=== PATIENT | male | born 1935 | race Caucasian/White ===

== ENCOUNTER 2017-04-26 08:59 | Emergency (ER) | payer OTHER, MEDICARE, BC ==
[~2017-04-26] VITALS: Ht 175.3 cm; Wt 60.5 kg
[~2017-04-26 08:59] MED LIST: ALBU8I INH; ASPI81 CHEW; ATOR40TA49 PO; BENZ100 PO; FENO145T2 PO; GLUCTAB PO; LEVO500T3 PO; LORTA5 PO; METO50CR PO; NITR.4 SL; PRED20 PO; SPIRCAP INH; ZITH250T PO
[2017-04-26 09:00] VITALS: BP 164/81; PULSE 65; RESP 16; TEMP 97.6; O2SAT 97
[2017-04-26] MEDS ORDERED: METO1TAB9 PO (09:28)
[2017-04-26] MEDS ORDERED: ATOR40TA16 PO (09:28)
[2017-04-26] MEDS ORDERED: ASPI1CHW4 CHEW (09:28)
[2017-04-26] MEDS ORDERED: FENO145T2 PO (09:28)
[2017-04-26] MEDS ORDERED: METF500T PO (09:28)
[2017-04-26 09:29] VITALS: BP 154/70; PULSE 60; RESP 20; O2SAT 98
[2017-04-26] MEDS ORDERED: SODIUM CHLORIDE 0.9% FLUSH 10 ML FLUSH IVF PRN (09:45)
[2017-04-26] MEDS ORDERED: traMADol HCL 50 MG TAB PO ONE (09:45)
[2017-04-26 09:50] LABS: AUTOMATED NEUTROPHIL # 7.2 TH/MM3 (1.8-7.7); BASOPHIL # 0.1 TH/MM3 (0-0.2); BASOPHIL % 1.2 % (0.0-2.0); EOSINOPHIL # 0.3 TH/MM3 (0-0.4); EOSINOPHIL % 3.2 % (0.0-4.0); HEMATOCRIT 43.6 % (39.0-51.0); HEMOGLOBIN 14.4 GM/DL (13.0-17.0); LYMPH % 13.5 % (9.0-44.0); LYMPHOCYTE # 1.4 TH/MM3 (1.0-4.8); MEAN CELL VOLUME 92.8 FL (80.0-100.0); MEAN CORPUSCULAR HEMOGLOBIN 30.7 PG (27.0-34.0); MEAN PLATELET VOLUME 8.7 FL (7.0-11.0); MONO % 10.7 % (0.0-8.0); MONOCYTE # 1.1 TH/MM3 (0-0.9); NEUT % 71.4 % (16.0-70.0); PLATELET COUNT 222 TH/MM3 (150-450); RED BLOOD COUNT 4.69 MIL/MM3 (4.50-5.90); RED CELL DISTRIBUTION WIDTH 15.7 % (11.6-17.2)
[2017-04-26 09:59] LABS: INTERNATIONAL NORMALIZED RATIO 1.1 RATIO; PROTHROMBIN TIME - PATIENT 11.6 SEC (9.8-11.6)
--- NOTE | 2017-04-26 10:06 | RADRPT ---
EXAM DATE/TIME: 04/26/2017 09:44 [facility] COMPARISON: No previous studies available for comparison. INDICATIONS : Palpitations. MEDICAL HISTORY : None. SURGICAL HISTORY : None. ENCOUNTER: Initial ACUITY: 3 days PAIN SCORE: 0/10 LOCATION: Bilateral chest FINDINGS: A single view of the chest demonstrates the lungs to be symmetrically aerated without evidence of mas s, infiltrate or effusion. The cardiomediastinal contours are unremarkable. Osseous structures are intact. CONCLUSION: No acute disease. Sammy Cordero MD FACR on April 26, 2017 at 10:04 Board Certified Radiologist. This report was verified electronically.
[2017-04-26 10:09] LABS: ALT (GPT) 19 U/L (12-78)
[2017-04-26 10:27] LABS: ALBUMIN 3.4 GM/DL (3.4-5.0); ALKALINE PHOSPHATASE 58 U/L (45-117); AST (GOT) 21 U/L (15-37); BICARBONATE 25.2 MEQ/L (21.0-32.0); BLOOD UREA NITROGEN 20 MG/DL (7-18); CHLORIDE 110 MEQ/L (98-107); CREATININE 1.36 MG/DL (0.60-1.30); GLOMERULAR FILTRATION RATE 50 ML/MIN (>89); GLUCOSE,RANDOM 72 MG/DL (74-106); SODIUM (NA) 142 MEQ/L (136-145); TOTAL BILIRUBIN ADULT 0.8 MG/DL (0.2-1.0); TROPONIN I LESS THAN 0.02 NG/ML (0.02-0.05)
[2017-04-26 10:42] VITALS: O2SAT 100
--- NOTE | 2017-04-26 10:43 | RADRPT ---
EXAM DATE/TIME: 04/26/2017 10:26 [facility] COMPARISON: No previous studies available for comparison. INDICATIONS : Syncopal episode with fall three days ago, hit right frontal area. RADIATION DOSE: 32.39 CTDIvol (mGy) MEDICAL HISTORY : Cardiovascular disease. Aneurysm, abdominal. Chronic obstructive pulmonary dise ase.Hypertension, Diabetes. SURGICAL HISTORY : None. ENCOUNTER: Initial ACUITY: 3 days PAIN SCALE: 4/10 LOCATION: Right frontal TECHNIQUE: Multiple contiguous axial images were obtained of the head. Using automated exposure control and adjustment of the mA and/or kV according to patient size, radiation dose was kept as low as reasonably achievable to obtain optimal diagnostic quality images. DICOM format image data is av ailable electronically for review and comparison. FINDINGS: CEREBRUM: The ventricles are normal for age. No evidence of midline shift, mass lesion, hemorrha ge or acute infarction. No extra-axial fluid collections are seen. POSTERIOR FOSSA: The cerebellum and brainstem are intact. The 4th ventricle is midline. The cer ebellopontine angle is unremarkable. EXTRACRANIAL: The visualized portion of the orbits is intact. SKULL: The calvaria is intact. No evidence of skull fracture. CONCLUSION: Negative for acute process Sammy Cordero MD FACR on April 26, 2017 at 10:40 Board Certified Radiologist. This report was verified electronically.
[2017-04-26 11:03] VITALS: BP 145/65; PULSE 51; RESP 20; O2SAT 97
--- NOTE | 2017-04-26 11:31 | RADRPT ---
EXAM DATE/TIME: 04/26/2017 10:26 [facility] COMPARISON: No previous studies available for comparison. INDICATIONS : Fall three days ago, neck pain. RADIATION DOSE: 20.47 CTDIvol (mGy) MEDICAL HISTORY : Cardiovascular disease. Aneurysm, abdominal. Chronic obstructive pulmonary disease.Hypertension, Diab etes. SURGICAL HISTORY : None. ENCOUNTER: Initial ACUITY: 3 days PAIN SCALE: 5/10 LOCATION: Bilateral neck TECHNIQUE: Volumetric scanning of the cervical spine was performed. Multiplanar reconstructions in the sagittal, coronal and oblique axial planes were performed. Using automated exposure control and adjustment o f the mA and/or kV according to patient size, radiation dose was kept as low as reasonably achievable to obtain optimal diagnostic quality images. DICOM format image data is available electronically f or review and comparison. FINDINGS: There is no acute fracture or prevertebral soft tissue swelling. Grade I retrolisthesis of C5 in rela tion to C4 is noted. Disc space narrowing is noted at C4-5, C5-6 and C6-7. Mild spinal stenosis is no catalino at C5-6. Severe right neural foraminal narrowing is noted at C3-4 and C4-5. Moderate left neural foraminal narrowing is noted at C3-4 and C4-5. Moderate bilateral foraminal narrowing is noted at C5- 6 and C6-7. The bony relationship and alignment between C1 and C2 is well maintained. Biapical emphys ematous changes and fibrotic scarring are noted. CONCLUSION: 1. No acute fracture or prevertebral soft tissue swelling. 2. Mild spinal stenosis at C5-6. 3. Severe right neural foraminal and moderate left neural foraminal narrowing at C3-4 and C4-5 as wel l as moderate bilateral foraminal narrowing at C5-6 and C6-7. 4. Grade I retrolisthesis of C5 in relation to C4. 5. Cervical spondylosis is noted at C4-5, C5-6 and C6-7. 6. Biapical emphysematous changes and fibrotic scarring are noted. Nitin Benedict MD on April 26, 2017 at 11:24 Board Certified Radiologist. This report was verified electronically.
--- NOTE | 2017-04-26 11:36 | RADRPT ---
EXAM DATE/TIME: 04/26/2017 10:33 [facility] COMPARISON: CT ABDOMEN & PELVIS W/O CONTRAST, May 18, 2013, 20:39. INDICATIONS : Fall three days ago, middle back pain. RADIATION DOSE: 24.91 CTDIvol (mGy) MEDICAL HISTORY : Cardiovascular disease. Aneurysm, abdominal. Chronic obstructive pulmonary disease.Hypertension, Diab etes. SURGICAL HISTORY : None. ENCOUNTER: Initial ACUITY: 3 days PAIN SCALE: 5/10 LOCATION: Bilateral mid-back TECHNIQUE: Volumetric scanning of the thoracic spine was performed. Multiplanar reconstructions in the sagittal , coronal and oblique axial planes were performed. Using automated exposure control and adjustment o f the mA and/or kV according to patient size, radiation dose was kept as low as reasonably achievable to obtain optimal diagnostic quality images. DICOM format image data is available electronically f or review and comparison. FINDINGS: No acute fracture or subluxation of the thoracic spine is noted. Mild chronic compression deformities involving T6 and T7 are noted. Minimal chronic compression deformity involving T12 is also noted. De generative changes are noted throughout the thoracic spine. No spinal stenosis is noted. There is a 3 mm calcified nonobstructing right renal calculus. Left renal cyst measuring 16 mm is noted. Right ad renal nodule measuring 14 mm is consistent with probable adrenal adenoma. There is aneurysmal dilatat ion of the descending thoracic aorta measuring 4.8 cm in greatest dimension. CONCLUSION: 1. No acute fracture or subluxation of the thoracic spine. 2. Mild chronic compression findings involving T6 and T7 and minimal chronic compression deformity in volving T12. 3. Degenerative changes throughout the thoracic spine. 4. 3 mm calcified nonobstructing right renal calculus. 16 mm left renal cyst. 5. 14 mm probable right adrenal adenoma. 6. Aneurysmal dilatation of the descending thoracic aorta measuring 4.8 cm in greatest dimension. Nitin Benedict MD on April 26, 2017 at 11:29 Board Certified Radiologist. This report was verified electronically.
--- NOTE | 2017-04-26 12:49 | EKG ---
Date Performed: 04/26/2017 Time Performed: 09:26:26 PTAGE: 81 years EKG: Sinus rhythm BORDERLINE LEFT AXIS DEVIATION BORDERLINE ECG PREVIOUS TRACING : 06/07/2015 11.59 DOCTOR: Zack Theodore Interpretating Date/Time 04/26/2017 12:46:57
[2017-04-26] MEDS ORDERED: IOHEXOL 350 MG/ML 10 ML VIAL (for RAD DIAG) IVCONTRAST ONE (14:08)
[2017-04-26 14:24] VITALS: BP 169/79; PULSE 58; RESP 18; O2SAT 97
--- NOTE | 2017-04-26 14:48 | RADRPT ---
EXAM DATE/TIME: 04/26/2017 13:59 [facility] COMPARISON: No previous studies available for comparison. INDICATIONS : Back pain. Evaluate for aortic dissection. IV CONTRAST: 75 cc Omnipaque 350 (iohexol) IV RADIATION DOSE: 4.15 CTDIvol (mGy) MEDICAL HISTORY : Aneurysm, abdominal. Hypertension. Chronic obstructive pulmonary disease. SURGICAL HISTORY : Abdominal aortic aneurysm repair. ENCOUNTER: Initial ACUITY: 1 day PAIN SCALE: 6/10 LOCATION: Bilateral back TECHNIQUE: Volumetric scanning was performed using a multi-row detector CT scanner. The data was post processed with a variety of visualization algorithms including full volume maximum intensity projection, multi -planar sliding thin slab reformation, curved planar reformation, and surface rendering techniques. Using automated exposure control and adjustment of the mA and/or kV according to patient size, radiat ion dose was kept as low as reasonably achievable to obtain optimal diagnostic quality images. DICOM format image data is available electronically for review and comparison. FINDINGS: There is panlobular emphysema in both upper lobes with central lobular emphysema in the bases. There is a large bulla present in the right lower lobe. No pulmonary nodules are identified. Examination of the mediastinum demonstrates no abnormally enlarged lymph nodes by CT criteria. No axillary or hilar abnormalities are identified. Coronary artery calcifications are present. The liver and spleen are normal in size and no focal defects are identified. There is a nodule in the right adrenal gland likely reflecting adenoma measuring 15 mm. There are simple cysts bilaterally th e largest measuring 5 cm in the lower pole on the right. The prostate gland is moderately enlarged im pinging on the bladder base. There is diverticulosis without evidence of diverticulitis. Examination of the aortic arch demonstrates no evidence of aneurysm or dissection. The descending th oracic aorta is unremarkable and the aortic root is normal in size. There is mural thrombus involving the aorta at the level of the aortic hiatus. The renal artery origins are patent bilaterally. The ce liac axis and superior mesenteric artery origins are also patent. 2.5 cm right common iliac artery an eurysm is present. CONCLUSION: 1. No evidence of aortic dissection. There is prominent mural thrombus involving the aorta at the lev el of the aortic hiatus without evidence of distal embolization. 2. 2.5 cm right common iliac artery aneurysm. 3. Severe emphysema 4. Probable right adrenal adenoma Constantino Kate MD on April 26, 2017 at 14:39 Board Certified Radiologist. This report was verified electronically.
--- NOTE | 2017-04-26 15:46 | PD ---
HPI Chief Complaint: Syncope/Near-Syncope Time Seen by Provider: 09:27 Travel History International Travel<30 days: No Contact w/Intl Traveler<30days: No Traveled to known affect area: No History of Present Illness HPI Patient is an 81-year-old male who comes in complaining of back pain. He says that he fell Monday while watching the [place] Bowl. He says he passed out, his who was there said that his legs gave out on him and he just kind of went to the ground and was talking the whole time. He is not concerned about this event, but says he has been having back pain since then. He does state that he hit his head on the wall and on the way down. He denies any urinary symptoms. He has not had any numbness or tingling in his extremities. He denies fever chills. Movement seems to make his pain worse. Severity is mild. PFSH Past Medical History Cardiovascular Problems: Yes (HTN) High Cholesterol: Yes COPD: Yes Diabetes: Yes Patient Takes Glucophage: Yes Diminished Hearing: No Hypertension: Yes Respiratory: Yes (COPD) Past Surgical History Abdominal Aneurysm Repair: Yes Coronary Stent: Yes ( X 2,IN 1998) Other Surgery: Yes (VHR X 2) Social History Alcohol Use: No Tobacco Use: No (quit 10 years ago) Substance Use: No Allergies-Medications (Allergen,Severity, Reaction): Coded Allergies: No Known Allergies (Verified Adverse Reaction, Unknown, 04/26/17) Reported Meds & Prescriptions Reported Meds & Active Scripts Active Reported Aspirin 81 Low Dose (Aspirin) 81 Mg Chew 162 Mg CHEW DAILY Atorvastatin (Atorvastatin Calcium) 40 Mg Tab 40 Mg PO HS Metoprolol Succinate ER 24 HR (Metoprolol Succinate) 50 Mg Tab 50 Mg PO DAILY Metformin (Metformin HCl) 500 Mg Tab 500 Mg PO BIDPC Fenofibrate 145 Mg Tab 145 Mg PO DAILY Review of Systems Except as stated in HPI: all other systems reviewed are Neg General / Constitutional: No: Fever, Chills HENT: No: Headaches, Lightheadedness Cardiovascular: No: Chest Pain or Discomfort Respiratory: No: Shortness of Breath Gastrointestinal: No: Nausea, Vomiting Genitourinary: No: Dysuria, Decreased Urinary Output, Oliguria Musculoskeletal: Positive: Pain Skin: No Rash, No Change in Pigmentation Neurologic: No: Weakness, Dizziness, Change in Mentation Physical Exam Narrative GENERAL: Awake and alert, no acute distress. SKIN: Focused skin assessment warm/dry. No wounds or signs of infection. HEAD: Atraumatic. Normocephalic. EYES: Pupils equal and round. No scleral icterus. Extraocular movements intact. ENT: Mucous membranes pink and moist. NECK: Trachea midline. No JVD. CARDIOVASCULAR: Regular rate and rhythm. No murmur appreciated. RESPIRATORY: No accessory muscle use. Clear to auscultation. Breath sounds equal bilaterally. GASTROINTESTINAL: Abdomen soft, non-tender, nondistended. MUSCULOSKELETAL: No obvious deformities. No clubbing. No cyanosis. No edema. No cervical spine, thoracic spine or lumbar spine tenderness. NEUROLOGICAL: Awake and alert. No obvious cranial nerve deficits. Motor grossly within normal limits. Normal speech. Sensation intact. PSYCHIATRIC: Appropriate mood and affect; insight and judgment normal. Data Data Last Documented VS Vital Signs Date Time Temp Pulse Resp B/P (MAP) Pulse Ox O2 Delivery O2 Flow Rate FiO2 04/26/17 14:24 58 18 169/79 (109) 97 Room Air 04/26/17 09:00 97.6 Orders Orders Complete Blood Count With Diff (04/26/17 09:35) Comprehensive Metabolic Panel (04/26/17 09:35) Ckmb (Isoenzyme) Profile (04/26/17 09:35) Troponin I (04/26/17 09:35) Act Partial Throm Time (Ptt) (04/26/17 09:35) Prothrombin Time / Inr (Pt) (04/26/17 09:35) Chest, Single Ap (04/26/17 09:35) Ct Brain W/O Iv Contrast(Rout) (04/26/17 09:35) Ct Cerv Spine W/O Contrast (04/26/17 09:35) Ecg Monitoring (04/26/17 09:35) Iv Access Insert/Monitor (04/26/17 09:35) Oximetry (04/26/17 09:35) Sodium Chloride 0.9% Flush (Ns Flush) (04/26/17 09:45) Ct Thor Spine W/O Contrast (04/26/17 ) Tramadol (Ultram) (04/26/17 09:45) Electrocardiogram (04/26/17 09:26) Cta Thor Abd Aorta W Iv C W3d (04/26/17 11:53) Iohexol 350 Inj (Omnipaque 350 Inj) (04/26/17 14:08) Labs Laboratory Tests Test 04/26/17 09:35 White Blood Count 10.0 TH/MM3 Red Blood Count 4.69 MIL/MM3 Hemoglobin 14.4 GM/DL Hematocrit 43.6 % Mean Corpuscular Volume 92.8 FL Mean Corpuscular Hemoglobin 30.7 PG Mean Corpuscular Hemoglobin Concent 33.0 % Red Cell Distribution Width 15.7 % Platelet Count 222 TH/MM3 Mean Platelet Volume 8.7 FL Neutrophils (%) (Auto) 71.4 % Lymphocytes (%) (Auto) 13.5 % Monocytes (%) (Auto) 10.7 % Eosinophils (%) (Auto) 3.2 % Basophils (%) (Auto) 1.2 % Neutrophils # (Auto) 7.2 TH/MM3 Lymphocytes # (Auto) 1.4 TH/MM3 Monocytes # (Auto) 1.1 TH/MM3 Eosinophils # (Auto) 0.3 TH/MM3 Basophils # (Auto) 0.1 TH/MM3 CBC Comment DIFF FINAL Differential Comment Prothrombin Time 11.6 SEC Prothromb Time International Ratio 1.1 RATIO Activated Partial Thromboplast Time 26.2 SEC Blood Urea Nitrogen 20 MG/DL Creatinine 1.36 MG/DL Random Glucose 72 MG/DL Total Protein 6.0 GM/DL Albumin 3.4 GM/DL Calcium Level 9.0 MG/DL Alkaline Phosphatase 58 U/L Aspartate Amino Transf (AST/SGOT) 21 U/L Alanine Aminotransferase (ALT/SGPT) 19 U/L Total Bilirubin 0.8 MG/DL Sodium Level 142 MEQ/L Potassium Level 4.1 MEQ/L Chloride Level 110 MEQ/L Carbon Dioxide Level 25.2 MEQ/L Anion Gap 7 MEQ/L Estimat Glomerular Filtration Rate 50 ML/MIN Total Creatine Kinase 49 U/L Troponin I LESS THAN 0.02 NG/ML MDM Medical Decision Making Medical Screen Exam Complete: Yes Emergency Medical Condition: Yes Interpretation(s) ECG shows normal sinus rhythm at 62, no ST elevation or depression, normal intervals Differential Diagnosis Compression fracture versus syncope versus dehydration versus electrolyte abnormality Narrative Course Patient is an 81-year-old male who comes in after he fell on Monday, complaining of back pain. Exam shows no neurologic abnormalities, no tenderness to palpation of the spine. IV established, labs sent. Labs show no acute abnormalities. CT head and C-spine performed show no acute abnormalities. CT of the thoracic spine shows a dilated thoracic aorta. CTA performed shows no evidence of dissection. Last 24 hours Impressions Aorta CTA 04/26/17 1153 Signed Impressions: Service Date/Time: Wednesday, April 26, 2017 13:59 - CONCLUSION: 1. No evidence of aortic dissection. There is prominent mural thrombus involving the aorta at the level of the aortic hiatus without evidence of distal embolization. 2. 2.5 cm right common iliac artery aneurysm. 3. Severe emphysema 4. Probable right adrenal adenoma Constantino Kate MD Head CT 04/26/1735 Signed Impressions: Service Date/Time: Wednesday, April 26, 2017 10:26 - CONCLUSION: Negative for acute process Sammy Cordero MD FACR Chest X-Ray 04/26/17934 Signed Impressions: Service Date/Time: Wednesday, April 26, 2017 09:44 - CONCLUSION: No acute disease. Sammy Cordero MD FACR Cervical Spine CT 04/26/17934 Signed Impressions: Service Date/Time: Wednesday, April 26, 2017 10:26 - CONCLUSION: 1. No acute fracture or prevertebral soft tissue swelling. 2. Mild spinal stenosis at C5- 6. 3. Severe right neural foraminal and moderate left neural foraminal narrowing at C3-4 and C4-5 as well as moderate bilateral foraminal narrowing at C5-6 and C6-7. 4. Grade I retrolisthesis of C5 in relation to C4. 5. Cervical spondylosis is noted at C4-5, C5-6 and C6-7. 6. Biapical emphysematous changes and fibrotic scarring are noted. Nitin Benedict MD Thoracic Spine CT 04/26/17 0000 Signed Impressions: Service Date/Time: Wednesday, April 26, 2017 10:33 - CONCLUSION: 1. No acute fracture or subluxation of the thoracic spine. 2. Mild chronic compression findings involving T6 and T7 and minimal chronic compression deformity involving T12. 3. Degenerative changes throughout the thoracic spine. 4. 3 mm calcified nonobstructing right renal calculus. 16 mm left renal cyst. 5. 14 mm probable right adrenal adenoma. 6. Aneurysmal dilatation of the descending thoracic aorta measuring 4.8 cm in greatest dimension. Nitin Benedict MD Patient informed of the results. Advised he should stay for syncope workup, and his insists that his legs just gave out on him, and he does not want to stay in the hospital. He will be referred to vascular surgery for follow- up. Advised to follow-up with a primary care doctor. Advised to return to the ED as needed for any worsening symptoms. Diagnosis Primary Impression: Fall Qualified Codes: W19.XXXA - Unspecified fall, initial encounter Additional Impression: Back pain Qualified Codes: M54.6 - Pain in thoracic spine Referrals: Eduar Lott MD call for appointment Patient Instructions: Back Pain (ED), General Instructions Additional Instructions: Follow-up with vascular surgery regarding your common iliac aneurysm. Take Tylenol as needed for pain. Follow-up with a primary care doctor. Return to the ED as needed for any worsening symptoms. Disposition: 01 DISCHARGE HOME Condition: Stable Kaye Acuna MD Apr 26, 2017 15:46
== END 2017-04-26 16:20 | disposition home or self-care (01) ==
LOC: NEPE 08:59
DX: M54.6 Pain in thoracic spine (principal); I74.11 Embolism and thrombosis of thoracic aorta; I10 Essential (primary) hypertension; J44.9 Chronic obstructive pulmonary disease, unspecified; E11.9 Type 2 diabetes mellitus without complications; R94.31 Abnormal electrocardiogram [ECG] [EKG]; R55 Syncope and collapse; W18.30XA Fall on same level, unspecified, initial encounter
CPT/HCPCS: 70450; 71045; 71275; 72125; 72128; 74174; 80053; 82550; 84484; 85025; 85610; 85730; 93005; 99285; Q9967